=== PATIENT | female | born 1995 | race Two or more races ===

== ENCOUNTER 2022-05-02 06:52 | Day surgery (SDC) | payer OTHER ==
[~2022-05-02] VITALS: Ht 170.2 cm; Wt 59.0 kg
== END 2022-05-02 17:10 | disposition home or self-care (01) ==
LOC: CIR.AMB 06:52
PROVIDERS: ATTEND Surgery
DX: N60.12 Diffuse cystic mastopathy of left breast (principal); N64.89 Other specified disorders of breast
CPT/HCPCS: 19301; 19281; L8699